=== PATIENT | male | born 1965 | race Caucasian/White ===

== ENCOUNTER 2018-01-31 09:20 | Emergency (ER) | payer OTHER ==
[2018-01-31] MEDS ORDERED: NA CHLORIDE 0.9% 500 ML ONE (09:33)
--- NOTE | 2018-01-31 10:03 | EKG ---
Test Date: 2018-01-31 Test Time: 09:42:09 Parking Meter Servicer: IDALMIS MEASUREMENT RESULTS: Intervals: Rate: 113 OK: 152 QRSD: 72 QT: 330 QTc: 452 Levasy: P: 37 OK: 152 QRS: 15 T: 58 INTERPRETIVE STATEMENTS: Sinus tachycardia Nonspecific T wave abnormality Abnormal ECG No previous ECG available for comparison Electronically Signed On 01-31-18 10:02:45 CDT by Charlie Wyatt
[2018-01-31 10:10] LABS: Absolute Lymphocytes (CBC) 2.7 K/uL (0.7-4.9); Absolute Monocytes 0.8 K/uL (0.1-1.3); Absolute Neutrophil 13.2 K/uL (1.8-8.0); Basophils % 0.5 % (0-1.3); Eosinophils % 0.2 % (0-4.4); Hematocrit 24.1 % (39.6-49.0); Lymphocytes % 16.1 % (15.3-44.8); MCV 89.1 fL (80-100); MPV 8.4 fL (7.6-11.3); Monocytes % 4.6 % (3.3-12.3)
--- NOTE | 2018-01-31 10:12 | RAD REPORT ---
EXAM DESCRIPTION: RAD - Chest Single View - 01/31/2018 10:00 am CLINICAL HISTORY: Shortness of breath. COMPARISON: None. FINDINGS: Portable technique limits examination quality. The lungs are grossly clear. The heart is normal in size. No displaced fractures. IMPRESSION: No acute intrathoracic process suspected.
[2018-01-31 10:52] LABS: Albumin 3.2 g/dL (3.2-5.5); Bilirubin Direct 0.1 mg/dL (0-0.2); Bilirubin Total 0.5 mg/dL (0.3-1.2); Protein, Total 5.6 g/dL (6.0-8.3)
--- NOTE | 2018-01-31 11:05 | RAD REPORT ---
EXAM DESCRIPTION: CTAbdomen Pelvis W Contrast - 01/31/2018 10:53 am CLINICAL HISTORY: Abdominal pain. GI bleeding. COMPARISON: None. TECHNIQUE: Biphasic CT imaging of the abdomen and pelvis was performed with 100 ml non-ionic IV cont rast. All CT scans are performed using dose optimization technique as appropriate and may include automated exposure control or mA/KV adjustment according to patient size. FINDINGS: The lung bases are clear. Mild diffuse fatty infiltration. No focal mass or intrahepatic biliary dilatation. Pancreatic fatty i nfiltration is also present involving the body, neck and head of the pancreas. No pancreatic ductal d ilatation. The spleen, adrenal glands and kidneys are within normal limits. No renal mass or hydronep hrosis. No bowel obstruction, free air, free fluid or abscess. Sigmoid diverticulosis is present. A subtle ar ea of inflammation in the fat adjacent to the sigmoid colon diverticula noted (image 73/[id number]). The appe ndix is normal. No evidence of significant lymphadenopathy. No suspicious bony findings. IMPRESSION: Sigmoid diverticulosis is noted with subtle inflammatory changes in the pericolonic fat posteriorly adjacent to diverticulum. This may represent an area of developing acute diverticulitis. Followup colonoscopy may be of value to exclude a small inflammatory mass in this region. Fatty infiltration of the liver and pancreas noted.
[2018-01-31] MEDS ORDERED: DIPHENHYDRAMINE 50 MG/ML VIAL ONE (11:06)
[2018-01-31] MEDS ORDERED: ACETAMINOPHEN 325 MG TABLET ONE (11:06)
[2018-01-31] MEDS ORDERED: NA CHLORIDE 0.9% 250 ML ONE (11:06)
[2018-01-31] MEDS ORDERED: HYDROCORTISONE SUC 100 MG INJ ONE (11:06)
--- NOTE | 2018-01-31 11:38 | ER ---
Nurse's Notes [facility] Name: Edu Aguilera Age: 52 yrs Sex: Male : 1965 Arrival Date: 01/31/2018 Time: 09:21 Bed 2 Private MD: Diagnosis: Acute Anemia;Gastrointestinal hemorrhage, unspecified;Diverticulosis of large intestine without perforation or abscess with bleeding;Diverticulitis of large intestine without perforation or abscess with bleeding Presentation: 01/31 09:21 Presenting complaint: Patient states: was sent by clinic for GI bleed, c/o dark red iw bloody stool since Sunday night, has been increasingly fatigued, SOB, palpitations, pt appears pale, diaphoretic. Transition of care: patient was not received from another setting of care. Onset of symptoms was January 29, 2018. Initial Sepsis Screen: Does the patient meet any 2 criteria? RR > 20 per min. HR > 90 bpm. Does the patient have a suspected source of infection? No. Patient's initial sepsis screen is negative. Care prior to arrival: None. 09:21 Method Of Arrival: Wheelchair iw 09:21 Acuity: SILVA 2 iw Historical: - Allergies: 09:24 No Known Allergies; iw - Home Meds: 09:24 losartan oral oral [Active]; Proctofoam HC Rectal [Active]; loratadine oral oral iw [Active]; Nystatin Topical [Active]; - PMHx: 09:24 Hypertension; Kidney stones; iw - PSHx: 09:24 None; iw - Immunization history:: Adult Immunizations up to date. - Social history:: Smoking status: Patient/guardian denies using tobacco. Screenin:47 Abuse screen: Denies threats or abuse. Denies injuries from another. Nutritional hb screening: No deficits noted. Tuberculosis screening: No symptoms or risk factors identified. Fall Risk Total Muse Fall Scale indicates Low Risk Score (25-44 pts). Fall prevention measures have been instituted. Side Rails Up X 2 Frequent Obs/Assesments occuring As available Patient and Family Educated on Fall Prevention Program and strategies. Assessment: 10:43 General: Appears in no apparent distress. comfortable, Behavior is calm, cooperative, aj appropriate for age. Pain: Denies pain. Neuro: Level of Consciousness is awake, alert, obeys commands, Oriented to person, place, time, situation, Appropriate for age. Respiratory: Reports shortness of breath at rest cough that is productive, Airway is patent Respiratory effort is even, unlabored, Respiratory pattern is regular, symmetrical. GI: Abdomen is obese. Derm: Skin is intact, is healthy with good turgor, Skin is pale. 11:50 Reassessment: Patient reported need to have BM. Patient then became diaphoretic and aj SOB. Patient placed in Trendelenburg position and provider notified. Dr Kaur entered room and requested patient to have NS 1 liter bolus and to rapid transfuse PRBC. Rate increased to 999 on blood. Additional units requested. 12:10 Reassessment: 2nd unit of PRBC's started. Patient is awake and alert at this time in aj supine position. 12:20 Reassessment: 2 nd unit completed. aj 12:25 Reassessment: 3 rd and 4 th units PRBC's started. aj Vital Signs: 09:22 BP 122 / 97; Pulse 124; Resp 22 S; Pulse Ox 100% on R/A; Pain 0/10; iw 10:17 BP 128 / 88; Pulse 111; Resp 18 S; Pulse Ox 100% on R/A; iw 11:45 BP 130 / 62; Pulse 122; Resp 18; Temp 98.0; Pulse Ox 100% on 2 lpm NC; aj 11:50 BP 83 / 41; Pulse 118; Resp 35; Temp 98.0; Pulse Ox 100% on 15% Non-rebreather mask; aj 12:10 BP 130 / 98; Pulse 96; Resp 22; Temp 97.5; Pulse Ox 100% on 15% Non-rebreather mask; aj 12:20 BP 112 / 64; Pulse 98; Resp 25; Temp 97.9; Pulse Ox 100% on 15% Non-rebreather mask; aj 11:50 Provider notified of patient's vital signs. aj ED Course: 09:21 Patient arrived in ED. iw 09:22 Carlitos Pham PA is PHCP. jr8 09:22 Campbell Kaur MD is Attending Physician. jr8 09:23 Triage completed. iw 09:45 Mackenzie Cooper, RN is Primary Nurse. hb 09:47 Arm band placed on right wrist. hb 09:51 EKG done, by clinical dental technician. reviewed by Carlitos MEDINA. at1 09:54 Radiology exam delayed due to lab results not completed at this time. (BUN/Creatinine). vr 09:57 X-ray completed. Portable x-ray completed in exam room. Patient tolerated procedure mh1 well. 09:58 XRAY Chest (1 view) In Process Unspecified. EDMS 10:33 Assisted provider with central line placement. Set up central line tray. Triple lumen aj line placed in right femoral. Line placed by Carlitos MEDINA Placement verified by blood return, Dressed with Tegaderm, Patient tolerated well. Before procedure, did Practitioner(s) obtain informed consent? Yes. Patient \T\ family education about procedure, CLABSI prevention and S/S of infection? Yes. Time-out/Briefing performed prior to start of procedure? Yes. Was handwashing/sanitizing done immediately prior to procedure? Yes. Was patient positioned to in a way to prevent air embolism? Yes. Was procedure site sterilized? Yes, with Was the site allowed to dry? Yes. Was local anesthetic and/or sedation utilized? Yes. During the procedure, did the Practitioner(s) maintain a sterile field? Yes. Were unused ports clamped during insertion? Yes. Was a 2nd qualified MD obtained after 3 unsuccessful insertion attempts? No. Was blood aspirated from each lumen? Yes. After the procedure, did the Practitioner(s) clean the site and apply a sterile dressing? Yes. 10:43 Fidelia Lopez, RN is Primary Nurse. aj 10:43 Patient has correct armband on for positive identification. aj 10:53 CT Abd/Pelvis - W/Contrast In Process Unspecified. EDMS Administered Medications: 10:00 Drug: NS 0.9% 500 ml Route: IV; Rate: bolus; Site: left hand; hb 13:00 Follow up: IV Status: Completed infusion; IV Intake: 500ml aj 11:05 Drug: Solu-CORTEF 50 mg Route: IVP; Site: left hand; aj 12:58 Follow up: Response: No adverse reaction aj 11:05 Drug: Benadryl 12.5 mg Route: IVP; Site: left hand; aj 12:58 Follow up: Response: No adverse reaction aj 11:05 Drug: Tylenol 650 mg Route: PO; aj 12:57 Follow up: Response: No adverse reaction aj 11:44 Drug: Cipro 400 mg Volume: 200 ml; Route: IVPB; Infused Over: 60 mins; Site: right aj femoral; 12:59 Follow up: IV Status: Infusion continued upon transfer aj 11:44 Drug: Flagyl 500 mg Volume: 100 ml; Route: IVPB; Rate: 200 ml/hr; Infused Over: 30 aj mins; Site: right femoral; 12:58 Follow up: IV Status: Infusion continued upon transfer aj 11:50 Drug: NS 0.9% 1000 ml Route: IV; Rate: 1 bolus; Site: right femoral; aj 13:03 Follow up: IV Status: Infusion continued upon transfer aj Intake: 13:00 IV: 500ml; Total: 500ml. aj Outcome: 11:38 ER care complete, transfer ordered by MD. denton 13:03 Patient left the ED. aj Signatures: Dispatcher [employer] EDMS Fidelia Lopez, RN RN aj Diana Hopkins mh1 Althea Red RN RN Vita Fletcher Josh, PA PA Fidelia mabry, veneer manufacturer EKG Tat1 Mackenzie Cooper RN RN hb Corrections: (The following items were deleted from the chart) 09:25 09:21 Presenting complaint: Patient states: was sent by clinic for GI bleed, c/o dark iw red bloody stool since Sunday night, has been increasingly fatigued, SOB, palpitations iw 10:17 09:22 BP 122 / 97; Pulse 124bpm; Resp 22bpm; Spontaneous; iw iw 12:49 12:20 Reassessment: 2nd unit of PRBC's started. aj aj 12:52 12:10 Reassessment: 2nd unit of PRBC's started. aj aj
[2018-01-31] MEDS ORDERED: CIPROFLOXACIN 400mg IV 400 MG/200 ML BAG IV ONE (11:39)
[2018-01-31] MEDS ORDERED: METRONIDAZOLE 500mg IVPB 500 MG/100 ML BAG IV ONE (11:39)
--- NOTE | 2018-01-31 11:39 | EDPHYS ---
Physician Documentation [facility] Name: Edu Aguilera Age: 52 yrs Sex: Male : 1965 Arrival Date: 01/31/2018 Time: 09:21 Bed 2 Private MD: ED Physician Campbell Kaur HPI: 01/31 10:44 This 52 yrs old Male presents to ER via Wheelchair with complaints of GI jr8 Bleeding. 10:44 The patient presents to the emergency department with rectal bleeding, a moderate jr8 amount, bright red blood with bowel movement, melena. Onset: The symptoms/episode began/occurred acutely, 2 day(s) ago. Abdominal pain: described as dull, vague,\E\ located in the right lower quadrant and left lower quadrant. Modifying factors: The symptoms are alleviated by nothing, the symptoms are aggravated by nothing. Associated signs and symptoms: Pertinent positives: shortness of breath, near-syncope. Severity of symptoms: At their worst the symptoms were severe in the emergency department the symptoms are unchanged. The patient has not experienced similar symptoms in the past. The patient has not recently seen a physician. Historical: - Allergies: 09:24 No Known Allergies; iw - Home Meds: 09:24 losartan oral oral [Active]; Proctofoam HC Rectal [Active]; loratadine oral oral iw [Active]; Nystatin Topical [Active]; - PMHx: 09:24 Hypertension; Kidney stones; iw - PSHx: 09:24 None; iw - Immunization history:: Adult Immunizations up to date. - Social history:: Smoking status: Patient/guardian denies using tobacco. ROS: 10:44 Eyes: Negative for injury, pain, redness, and discharge, ENT: Negative for injury, jr8 pain, and discharge, Neck: Negative for injury, pain, and swelling, Cardiovascular: Negative for chest pain, palpitations, and edema, Back: Negative for injury and pain, MS/Extremity: Negative for injury and deformity, Skin: Negative for injury, rash, and discoloration. 10:44 Respiratory: Positive for shortness of breath, Negative for cough, dyspnea on exertion, hemoptysis, orthopnea, pleurisy, sputum production, wheezing. 10:44 Abdomen/GI: Positive for abdominal pain, nausea, black/tarry stool, rectal bleeding. 10:44 Neuro: Positive for dizziness, near syncope. Exam: 10:44 Head/Face: Normocephalic, atraumatic. Eyes: Pupils equal round and reactive to light, jr8 extra-ocular motions intact. Lids and lashes normal. Conjuntival palor noted. Cornea within normal limits. Periorbital areas with no swelling, redness, or edema. ENT: Nares patent. No nasal discharge, no septal abnormalities noted. Tympanic membranes are normal and external auditory canals are clear. Oropharynx with no redness, swelling, or masses, exudates, or evidence of obstruction, uvula midline. Mucous membranes moist. Neck: Trachea midline, no thyromegaly or masses palpated, and no cervical lymphadenopathy. Supple, full range of motion without nuchal rigidity, or vertebral point tenderness. No Meningismus. Respiratory: Lungs have equal breath sounds bilaterally, clear to auscultation and percussion. No rales, rhonchi or wheezes noted. No increased work of breathing, no retractions or nasal flaring. Back: No spinal tenderness. No costovertebral tenderness. Full range of motion. MS/ Extremity: Pulses equal, no cyanosis. Neurovascular intact. Full, normal range of motion. Neuro: Awake and alert, GCS 15, oriented to person, place, time, and situation. Cranial nerves II-XII grossly intact. Motor strength 5/5 in all extremities. Sensory grossly intact. Cerebellar exam normal. Normal gait. 10:44 Cardiovascular: Rate: tachycardic, Rhythm: regular, Pulses: Pulses are 2+ in right radial artery and left radial artery. Heart sounds: normal, normal S1and S2, no S3 or S4, no murmur, no rub, no gallop, Edema: is not appreciated, JVD: is not appreciated. 10:44 Abdomen/GI: Inspection: obese Bowel sounds: active, all quadrants, Palpation: soft, in all quadrants, mild abdominal tenderness, in the right lower quadrant and left lower quadrant, mass, is not appreciated, rebound tenderness, is not appreciated, voluntary guarding, is not appreciated, involuntary guarding, is not appreciated, no appreciated organomegaly, Rectal exam: rectal tone normal, Stool: grossly bloody, the exam is chaperoned by the nurse, Indicators: McBurney's point is not tender, Shanks's sign is negative, Rovsing's sign is negative. 10:44 Skin: Appearance: Color: pale, Temperature: cool, Moisture: diaphoretic. Vital Signs: 09:22 BP 122 / 97; Pulse 124; Resp 22 S; Pulse Ox 100% on R/A; Pain 0/10; iw 10:17 BP 128 / 88; Pulse 111; Resp 18 S; Pulse Ox 100% on R/A; iw 11:45 BP 130 / 62; Pulse 122; Resp 18; Temp 98.0; Pulse Ox 100% on 2 lpm NC; aj 11:50 BP 83 / 41; Pulse 118; Resp 35; Temp 98.0; Pulse Ox 100% on 15% Non-rebreather mask; aj 12:10 BP 130 / 98; Pulse 96; Resp 22; Temp 97.5; Pulse Ox 100% on 15% Non-rebreather mask; aj 12:20 BP 112 / 64; Pulse 98; Resp 25; Temp 97.9; Pulse Ox 100% on 15% Non-rebreather mask; aj 11:50 Provider notified of patient's vital signs. aj Procedures: 13:05 Central Line: the site was prepped with Betadine, in sterile fashion, a triple lumen jr8 catheter was inserted, in the right femoral vein, in 1 attempts. placement was verified, by blood return, the site was dressed with 4X4s, Tegaderm, foam tape, using sterile technique, the patient tolerated the procedure, well. MDM: 09:23 Patient medically screened. 8 11:36 Data reviewed: vital signs, nurses notes, lab test result(s), EKG, radiologic studies, [facility] CT scan, plain films, and as a result, I will admit patient. Data interpreted: Pulse oximetry: on room air is 100 %. Interpretation: normal. Counseling: I had a detailed discussion with the patient and/or guardian regarding: the historical points, exam findings, and any diagnostic results supporting the discharge/admit diagnosis, lab results, radiology results, the need to transfer to another facility, for higher level of care, [facility] does not immediately have the required specialist. Physician consultation: Dr. Hernandez was called at 11:37, was contacted at 11:37, regarding regarding transfer, to [facility]. consult, patient's condition, after a discussion of the case, a recommendation for transfer for higher level of care is made. 13:05 ED course: Patient had two large bloody bowel movements prior to being transferred. jr8 Became hypotensive. Mass transfusion of blood initiated to stabilize. Patient was then life flighted to [facility]. . 01/31 09:24 Order name: Basic Metabolic Panel; Complete Time: 10:57 [facility] 01/31 09:24 Order name: CBC with Diff; Complete Time: 10:29 [facility] 01/31 09:24 Order name: Creatinine for Radiology; Complete Time: 10: [facility] 01/31 09:24 Order name: Hepatic Function; Complete Time: 10:57 8 01/31 09:24 Order name: Lipase; Complete Time: 10:57 [facility] 01/31 09:24 Order name: TS [facility] 01/31 09:26 Order name: Ptt, Activated; Complete Time: 12:51 [facility] 01/31 09:26 Order name: Bb Add On ag 01/31 10:45 Order name: Packed RBC Leukored -1 [facility] [place] 01/31 12:00 Order name: ABO rpt EDMA 01/31 12:00 Order name: Fresh Frozen Plasma [facility] [place] 01/31 12:00 Order name: Packed RBCs (Additional Unit) [facility] 01/31 12:01 Order name: Bb Add On iw 01/31 12:01 Order name: Bb Add On iw 01/31 09:24 Order name: IV Saline Lock; Complete Time: 10:29 8 01/31 09:24 Order name: Labs collected and sent; Complete Time: 10:29 [facility] 01/31 09:24 Order name: Urine Dipstick-Ancillary (obtain specimen); Complete Time: 10:29 [facility] 01/31 09:24 Order name: EKG - Nurse/Tech; Complete Time: 10:29 [facility] 01/31 09:24 Order name: EKG; Complete Time: 09:25 [facility] 01/31 09:24 Order name: CT Abd/Pelvis - W/Contrast; Complete Time: 11:08 8 01/31 09:26 Order name: XRAY Chest (1 view); Complete Time: 10:29 [facility] 01/31 12:03 Order name: ABO/RH no charge; Complete Time: 12:08 [facility] [place] 01/31 12:41 Order name: Protime (+INR); Complete Time: 12:51 EDMS Administered Medications: 10:00 Drug: NS 0.9% 500 ml Route: IV; Rate: bolus; Site: left hand; hb 13:00 Follow up: IV Status: Completed infusion; IV Intake: 500ml aj 11:05 Drug: Solu-CORTEF 50 mg Route: IVP; Site: left hand; aj 12:58 Follow up: Response: No adverse reaction aj 11:05 Drug: Benadryl 12.5 mg Route: IVP; Site: left hand; aj 12:58 Follow up: Response: No adverse reaction aj 11:05 Drug: Tylenol 650 mg Route: PO; aj 12:57 Follow up: Response: No adverse reaction aj 11:44 Drug: Cipro 400 mg Volume: 200 ml; Route: IVPB; Infused Over: 60 mins; Site: right aj femoral; 12:59 Follow up: IV Status: Infusion continued upon transfer aj 11:44 Drug: Flagyl 500 mg Volume: 100 ml; Route: IVPB; Rate: 200 ml/hr; Infused Over: 30 aj mins; Site: right femoral; 12:58 Follow up: IV Status: Infusion continued upon transfer aj 11:50 Drug: NS 0.9% 1000 ml Route: IV; Rate: 1 bolus; Site: right femoral; aj 13:03 Follow up: IV Status: Infusion continued upon transfer aj Disposition: 02/01 07:08 Co-signature as Attending Physician, Campbell Kaur MD I agree with the assessment and wa plan of care. Disposition: 01/31/18 11:38 Transfer ordered to [facility]. Diagnosis are Acute Anemia, Gastrointestinal hemorrhage, unspecified, Diverticulosis of large intestine without perforation or abscess with bleeding, Diverticulitis of large intestine without perforation or abscess with bleeding. - Reason for transfer: Higher level of care. - Accepting physician is Dr. Hernandez. - Condition is Fair. - Problem is new. - Symptoms have improved. Critical care time excluding procedures: 01/31 13:05 Critical care time: Bedside Care: 20 minutes, Consultation: 10 minutes. Total time: 30 jr8 minutes Signatures: Dispatcher [employer] EDMS Fidelia Lopez RN RN aj Williams, Irene, RN RN iw Roszak, Josh, PA PA jr8 Mackenzie Cooper RN RN hb Appiah, William, MD MD wa Corrections: (The following items were deleted from the chart) 10:48 10:44 Abdomen/GI: Inspection: obese Bowel sounds: active, all quadrants, Palpation: jr8 soft, in all quadrants, mild abdominal tenderness, in the right lower quadrant and left lower quadrant, mass, is not appreciated, rebound tenderness, is not appreciated, voluntary guarding, is not appreciated, involuntary guarding, is not appreciated, no appreciated organomegaly, Indicators: McBurney's point is not tender, Shanks's sign is negative, Rovsing's sign is negative, jr8 13:03 11:38 01/31/2018 11:38 Transfer ordered to [facility]. Diagnosis is aj Acute Anemia; Gastrointestinal hemorrhage, unspecified; Diverticulosis of large intestine without perforation or abscess with bleeding; Diverticulitis of large intestine without perforation or abscess with bleeding. Reason for transfer: Higher level of care. Accepting physician is Dr. Hernandez. Condition is Fair. Problem is new. Symptoms have improved. jr8
[2018-01-31] MEDS ORDERED: NA CHLORIDE 0.9% 1,000 ML ONE (11:52)
[2018-01-31 12:44] LABS: Protime INR 1.17
== END 2018-01-31 13:03 | disposition short-term general hospital (02) ==
LOC: ER 09:20
PROC: 06HM33Z Insertion of Infusion Device into Right Femoral Vein, Percutaneous Approach (ICD-10-PCS; principal; 2018-01-31)
PROC: 30233N1 Transfusion of Nonautologous Red Blood Cells into Peripheral Vein, Percutaneous Approach (ICD-10-PCS; 2018-01-31)
DX: D64.9 Anemia, unspecified (principal); K57.32 Diverticulitis of large intestine without perforation or abscess without bleeding; K57.30 Diverticulosis of large intestine without perforation or abscess without bleeding; I10 Essential (primary) hypertension
CPT/HCPCS: 36415; 36430; 71045; 74177; 80048; 80076; 83690; 85025; 85610; 85730; 86850; 86900; 86901; 86927; 93005; 96361; 96365; 96368; 96375; 99284; J0744; J1720; J7030; P9016; P9017; Q9967